=== PATIENT | male | born 1960 | race Two or more races ===

== ENCOUNTER 2025-06-11 12:03 | Emergency (ER) | payer OTHER ==
[~2025-06-11] VITALS: Ht 182.9 cm; Wt 96.3 kg
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
[2025-06-11] MEDS: HYDROcodone-ACET 5/325MG TAB PO ONE (15:33)
[2025-06-11] MEDS: ONDANSETRON ODT 4 MG TAB PO ONE (15:33)
[2025-06-11 16:30] VITALS: BP 156/97; PULSE 77; RESP 18; TEMP 98.2; O2SAT 98
== END 2025-06-11 16:33 | disposition home or self-care (01) ==
LOC: ER 12:03 → EDBD 12:03 → ER 16:33
DX: G43.909 Migraine, unspecified, not intractable, without status migrainosus (principal); I11.0 Hypertensive heart disease with heart failure; I50.9 Heart failure, unspecified; E11.9 Type 2 diabetes mellitus without complications; Y04.0XXA Assault by unarmed brawl or fight, initial encounter; Y93.89 Activity, other specified; Y92.89 Other specified places as the place of occurrence of the external cause; Y99.8 Other external cause status
CPT/HCPCS: 70450; 71045; 73110; 99284; Q0162